=== PATIENT | female | born 1950 | race Caucasian/White ===

== ENCOUNTER 2016-08-24 06:53 | Emergency (ER) | payer OTHER ==
--- NOTE | 2016-08-24 06:55 | EDPHY ---
Medical Decision Making ED Course/Re-evaluation: CHIEF COMPLAINT: HISTORY OF PRESENT ILLNESS: must have 4 elements: Location, Quality, Severity , Duration, Timing, Context, Modifying Factors, Associated Signs and Symptoms REVIEW OF SYSTEMS: A 10 point review of systems was performed and is negative with the exception of the elements mentioned in the history of present illness. PHYSICAL EXAM: HR, BP, O2 Sat, RR. Temp noted General Appearance: Alert, well hydrated, appropriate, and non-toxic appearing. Head: Atraumatic without scalp tenderness or obvious injury Eyes: Pupils equal, round, reactive to light and accommodation, EOMI, no trauma , no injection. Ears: Clear bilaterally, no perforation, normal landmarks Nose: Atraumatic, no rhinorrhea, clear. Throat: There is no erythema or exudates, no lesions, normal tonsils, mucus membranes moist. Neck: Supple, 2+ carotid upstroke, nontender, no lymphadenopathy. Respiratory: No retractions, no distress, no wheezes, and no accessory muscle use. Lungs are clear to auscultation bilaterally. Cardiovascular: Regular rate and rhythm, no murmurs, rubs, or gallops. Bilateral carotid, radial, dorsalis pedis, and posterior tibial pulses intact. Good capillary refill all extremities. Gastrointestinal: Abdomen is soft, nontender, non-distended, no masses, no rebound, no guarding, no peritoneal signs. Musculoskeletal: Normal active ROM of all extremities, atraumatic. Neurological: Alert, appropriate, and interactive. The patient has normal DTRs and non-focal cranial nerves, motor, sensory, and cerebellar exam. Skin: No rashes, good turgor, no nodules on palpation. Past medical history: Past surgical history: Family history: Social history: DIAGNOSTICS/PROCEDURES/CRITICAL CARE TIME: DIFFERENTIAL DIAGNOSIS: MEDICAL DECISION MAKING:
--- NOTE | 2016-08-24 07:05 | EDPHY ---
H & P Constitutional: Initial Vital Signs Temperature (C) 35.7 C L 08/24/16 07:02 Heart Rate 79 08/24/16 07:02 Respiratory Rate 18 08/24/16 07:02 Blood Pressure 107/68 08/24/16 07:02 O2 Sat (%) 96 08/24/16 07:02 O2 Delivery Mode Room Air Allergies/Adverse Reactions: terbinafine [From Lamisil] Allergy (Verified 08/24/16 07:01) Home Medications: Medication Instructions Recorded Aspirin 08/24/16 Cevimeline HCl 08/24/16 Levothyroxine 08/24/16 Medical Decision Making ED Course/Re-evaluation: CHIEF COMPLAINT: Vertigo, nausea HISTORY OF PRESENT ILLNESS: The patient is a 65 y/o female arriving via EMS complaining of dizziness and nausea onset early this morning around 05:30 this morning. She felt normal when she woke around 02:00, but when she stood up out of bed a few hours later she had "severe vertigo." Her symptoms are aggravated by any movement of her head. She denies recent illness or trauma, but does state her left ear "feels plugged." She denies weakness, paresthesias, speech difficulty, headache, vision changes, or other symptoms. REVIEW OF SYSTEMS: A 10 point review of systems was performed and is negative with the exception of the elements mentioned in the history of present illness. PHYSICAL EXAM: HR, BP, O2 Sat, RR. Temp noted General Appearance: Alert, well hydrated, appropriate, and non-toxic appearing. Head: Atraumatic without scalp tenderness or obvious injury Eyes: Pupils equal, round, reactive to light and accommodation, EOMI, no trauma , no injection. Ears: Clear bilaterally, no perforation, normal landmarks Nose: Atraumatic, no rhinorrhea, clear. Throat: There is no erythema or exudates, no lesions, normal tonsils, mucus membranes moist. Neck: Supple, nontender, no lymphadenopathy. Respiratory: No retractions, no distress, no wheezes, and no accessory muscle use. Lungs are clear to auscultation bilaterally. Cardiovascular: Regular rate and rhythm, no murmurs, rubs, or gallops. Good capillary refill all extremities. Gastrointestinal: Abdomen is soft, nontender, non-distended, no masses, no rebound, no guarding, no peritoneal signs. Musculoskeletal: Normal active ROM of all extremities, atraumatic. Neurological: Alert, appropriate, and interactive. The patient has normal DTRs and non-focal cranial nerves, motor, sensory, and cerebellar exam. Skin: No rashes, good turgor, no nodules on palpation. Past medical history: Hypothyroidism Past surgical history: Denies Family history: noncontributory Social history: Lives in [place]. Works for [employer]. DIFFERENTIAL DIAGNOSIS: The differential diagnosis for the patient's dizziness included but was not limited to peripheral and central causes of vertigo, orthostatic causes including dehydration, cardiogenic and neurogenic causes, and blood loss. MEDICAL DECISION MAKING: This is a 65 y/o female with minimal medical history who presents with acute onset room-spinning dizziness and nausea shortly after getting out of bed this morning. She has no associated symptoms that would make me suspicious for stroke and her neuro exam is normal with normal strength in all extremities. Plan to treat symptoms with 1mg IV lorazepam, 4mg IV Zofran, and 25mg PO meclizine. Due to her report of a "plugged" left ear, will also administer nasal decongestant to help with possible congestion that could be a contributing factor for her symptoms. Reassessed patient. She is feeling improved after medication administration and feels ready to go home. I've written prescriptions for Meclizine and Zofran to use as needed for symptoms at home. ENT referral if needed for unimproved symptoms. Return precautions given. She is comfortable with this plan. Departure - Departure Disposition: Home, Routine, Self-Care Clinical Impression: Benign positional vertigo Qualifiers: Laterality: left Qualified Code(s): H81.12 - Benign paroxysmal vertigo, left ear Condition: Good Instructions: Vertigo (ED) Additional Instructions: 1. Use Meclizine as prescribed for dizziness. 2. Take Zofran when needed for nausea or vomiting. 3. Follow up with an ENT for unimproved symptoms over the next few days. You've been referred to Dr. Carson. 4. Return to the ED for severe headache, weakness or numbness on one side of your body, speech difficulty, or other worsening of condition. Referrals: Manjinder Carson MD [Medical Doctor] - As per Instructions Report Scribed for: Fabrizio Swenson Report Scribed by: Lidia Hunt Date of Report: 08/24/16 Time of Report: 07:05
[2016-08-24 07:06] VITALS: RESP 18
[2016-08-24] MEDS ORDERED: OXYMETAZOLINE 30 ML NASAL SPRAY EACHNARE ONE (07:07)
[2016-08-24] MEDS ORDERED: ONDANSETRON 4 MG/2 ML VIAL IVP ONE (07:07)
[2016-08-24] MEDS ORDERED: LORazepam 2 MG/ML INJ IVP ONE (07:07)
[2016-08-24] MEDS ORDERED: MECLIZINE HCL 25 MG TAB PO ONE (07:08)
[2016-08-24] MEDS ORDERED: NS 1,000 ML IV ONE (08:49)
[2016-08-24 09:49] VITALS: BP 95/61; PULSE 73; TEMP 98.6; O2SAT 91
== END 2016-08-24 09:51 | disposition home or self-care (01) ==
LOC: EDUNIT#
DX: H81.12 Benign paroxysmal vertigo, left ear (principal); Z79.82 Long term (current) use of aspirin
CPT/HCPCS: 96374; J2060; J2405